=== PATIENT | female | born 1965 | race African-American/Black ===

== ENCOUNTER 2024-10-03 16:14 | Emergency (ER) | payer BC ==
[~2024-10-03] VITALS: Ht 167.6 cm; Wt 73.0 kg
[2024-10-03 16:22] VITALS: TEMP 98.1
[2024-10-03 16:50] LABS: BASOPHILS % 0.8 % (0.0-1.0); EOSINOPHILS # (AUTO) 0.2 (0.0-0.4); EOSINOPHILS % 3.2 % (0.0-6.0); HEMATOCRIT 38.8 % (34.2-44.1); HEMOGLOBIN 12.4 g/dL (12.0-16.0); LYMPHOCYTES # (AUTO) 1.3 (1.0-3.2); MEAN CORPUSCULAR HEMOGLOBIN 27.7 pg (28-32); MEAN CORPUSCULAR VOLUME 86.6 fL (81-99); MONOCYTES # (AUTO) 0.3 (0.2-0.8); MONOCYTES % 6.9 % (4.4-11.3); NEUTROPHILS # (AUTO) 3.1 (2.1-6.9); NEUTROPHILS % 62.9 % (38.7-80.0); PLATELET COUNT 219 x10e3/uL (140-360); RED BLOOD COUNT 4.48 x10e6/uL (3.6-5.1); RED CELL DISTRIBUTION WIDTH 13.8 % (11.7-14.4); WHITE BLOOD COUNT 4.93 x10e3/uL (4.8-10.8)
[2024-10-03 17:04] LABS: CALCIUM 8.9 mg/dL (8.4-10.2); CREATININE, SERUM 1.15 mg/dL (0.57-1.11)
[2024-10-03 17:07] VITALS: PULSE 88; RESP 16
[2024-10-03] MEDS ORDERED: HYDROCHLOROTHIA25 MG PO (17:17)
[2024-10-03] MEDS ORDERED: LOSARTAN POTASS25 MG PO (17:19)
[2024-10-03 17:41] VITALS: BP 168/97; PULSE 79; RESP 18; O2SAT 99
== END 2024-10-03 17:43 | disposition home or self-care (01) ==
LOC: ER 16:29
DX: I10 Essential (primary) hypertension (principal); F17.210 Nicotine dependence, cigarettes, uncomplicated
CPT/HCPCS: 36415; 80048; 85025; 99283